=== PATIENT | male | born 1940 | race Caucasian/White ===

== ENCOUNTER 2018-10-13 21:15 | Emergency (ER) | payer MEDICARE ==
[~2018-10-13] VITALS: Ht 177.8 cm; Wt 83.9 kg
[2018-10-13] MEDS ORDERED: FLECAINIDE ACE100 MG PO (21:31)
[2018-10-13] MEDS ORDERED: LIPITOR10 MG PO (21:32)
[2018-10-13] MEDS ORDERED: COUMADIN5 MG PO (21:32)
[2018-10-13] MEDS ORDERED: DILTIAZEM ER120 M2 PO (21:33)
[2018-10-13] MEDS ORDERED: FLONASE ALLERG9.9 ML NAS (21:34)
[2018-10-13] MEDS ORDERED: ZOFRAN4 MG PO (21:35)
== END 2018-10-14 02:40 | disposition home or self-care (01) ==
LOC: ED 21:15
DX: R10.10 Upper abdominal pain, unspecified (principal); R11.10 Vomiting, unspecified; I48.91 Unspecified atrial fibrillation; Z85.528 Personal history of other malignant neoplasm of kidney; Z85.46 Personal history of malignant neoplasm of prostate; Z90.49 Acquired absence of other specified parts of digestive tract; Z79.899 Other long term (current) drug therapy
CPT/HCPCS: 80053; 81001; 83690; 85025; 85610; 96361; 96374; 96375; 99284-25; J1170; J2405; J7030